=== PATIENT | male | born 1995 | race Caucasian/White ===

== ENCOUNTER 2020-02-22 08:21 | Day surgery (SDC) | payer OTHER ==
[~2020-02-22] VITALS: Ht 182.9 cm; Wt 87.1 kg
[~2020-02-22 08:21] MED LIST: IBUP-1223 PO
[2020-02-22 08:53] VITALS: BP 144/83
[2020-02-22] MEDS ORDERED: CHLORHEXIDINE 15 ML UDC MM STA (08:55)
[2020-02-22] MEDS ORDERED: LACTATED RINGERS 1,000 ML IV ONE (08:55)
[2020-02-22] MEDS ORDERED: MIDAZOLAM 1 MG/ML, 2ML ONE (09:42)
[2020-02-22] MEDS ORDERED: FENTANYL PF 100 MCG/2ML ONE (09:43)
[2020-02-22] MEDS ORDERED: IBUPROFEN 800 MG TABLET PO PRN (11:00)
[2020-02-22] MEDS ORDERED: BUPIVACAINE/EPI 0.5% 1:200K ONE (11:11)
[2020-02-22] MEDS ORDERED: LIDOCAINE 1%-EPI 1:100K, 20ML ONE (11:11)
[2020-02-22] MEDS ORDERED: OXYcodone 5 MG/5 ML ORAL.SOL UDC PO PRN (11:30)
[2020-02-22] MEDS ORDERED: ACETAMINOPHEN 325 MG TABLET PO PRN (11:30)
[2020-02-22] MEDS ORDERED: MEPERIDINE/PF 25MG/0.5ML IVPush PRN (11:30)
[2020-02-22] MEDS ORDERED: FENTANYL PF 100 MCG/2ML IV PRN (11:30)
[2020-02-22] MEDS ORDERED: DEXAMETHASONE 4 MG/ML, 5ML ONE (11:33)
[2020-02-22] MEDS ORDERED: PROPOFOL 10 MG/ML, 20ML ONE (11:33)
[2020-02-22] MEDS ORDERED: ONDANSETRON 2MG/ML, 2ML ONE (11:33)
[2020-02-22] MEDS ORDERED: DIPHENHYDRAMINE 50 MG/ML, 1ML ONE (11:33)
[2020-02-22] MEDS ORDERED: CEFAZOLIN 1,000 MG ONE (11:33)
[2020-02-22] MEDS ORDERED: SUCCINYLCHOLINE 20 MG/ML, 10ML ONE (11:33)
== END 2020-02-22 13:45 | disposition home or self-care (01) ==
LOC: SDC 08:21 → OUT 13:45 → EDSTATUS 17:00
PROVIDERS: ATTEND Orthopaedic Surgery
DX: S43.432A Superior glenoid labrum lesion of left shoulder, initial encounter (principal); Z20.828 Contact with and (suspected) exposure to other viral communicable diseases; M25.312 Other instability, left shoulder; X58.XXXA Exposure to other specified factors, initial encounter; Y93.89 Activity, other specified; Y92.89 Other specified places as the place of occurrence of the external cause; Y99.8 Other external cause status; M25.511 Pain in right shoulder; Z88.1 Allergy status to other antibiotic agents; Z88.8 Allergy status to other drugs, medicaments and biological substances; Z88.0 Allergy status to penicillin; Z79.899 Other long term (current) drug therapy; Z72.89 Other problems related to lifestyle
CPT/HCPCS: 29822; 36415; 64415; 87635; J0330; J0690; J1100; J1200; J2250; J2405; J2704; J3010; J3490; J7120